=== PATIENT | male | born 1975 | race Caucasian/White ===

== ENCOUNTER 2025-01-20 11:18 | Emergency (ER) | payer MEDICAID ==
[~2025-01-20] VITALS: Ht 185.4 cm; Wt 81.8 kg
[2025-01-20 11:28] VITALS: BP 159/81; PULSE 57; O2SAT 99
[2025-01-20] MEDS ORDERED: CYCL-394 PO (13:21)
--- NOTE | 2025-01-20 13:21 | Physician Documentation ---
History of Present Illness ~ Chief Complaint: Back Pain Stated Complaint: BACK PAIN Time Seen by MD: 13:02 [facility] This patient was seen two weeks ago for lower back pain and recently injured his back again by picking up and heavy object. Denies any red flag symptoms including incontinence, saddle anesthesia or fevers or nausea vomiting Medication Reconciliation Allergies: Coded Allergies: No Known Allergies (Unverified , 01/20/25) Review of Systems All Other Systems at this time: Reviewed and Negative ROS As stated above in the HPI, otherwise all systems are reviewed and negative. Physical Exam Physical Exam Vital Signs: Temperature: 98.0, Source: Temporal, Heart Rate: 57, Respiratory Rate: 20, BP: 159/81, Pulse Oximetry: 99, Weight: 81.820 Oxygen Flow Rate: 0 Physical Exam General: Alert, no apparent distress. Neck: Full range of motion. Respiratory: Lungs clear, no respiratory distress. back: Lumbar tenderness to palpation Neurologic: Oriented x4. Psychiatric: Normal mood and affect. Skin: Normal color, warm and dry. No edema, no ecchymosis. Progress Results/Orders Results/Orders Completed Orders - SCAR ERICKSON NP Hydrocodone/Apap 10/325 (Cameron 10/325mg (01/20/25 13:00) Vital Signs 01/20/25 11:28 Temp 98.0 Pulse 57 Resp 20 B/P (MAP) 159/81 Pulse Ox 99 O2 Flow Rate 0 Medical Decision Making Findings Does not present with any concerning symptoms that would require further imaging or evaluation.. Going to treat him as a lumbar strain, I discussed with him the necessity of participating in physical therapy for correction symptomatic relief. Meantime I am going to send him home with a muscle relaxers and anti- inflammatory Departure Disposition: 01 HOME / SELF CARE / HOMELESS Impression: Primary Impression: Lumbosacral strain Condition: Stable Discharge Instructions: Lumbosacral Strain Referrals: NO PRIMARY CARE PROVIDER (PCP) Prescriptions Naproxen (Naproxen) 500 Mg Tablet 1 TAB PO Q12H for pain for 30 Days, #60 TAB 0 Refills Prov: SCAR ERICKSON NP 01/20/25 Cyclobenzaprine HCl (Cyclobenzaprine HCl) 10 Mg Tablet 1 TAB PO Q8H for muscle spasms for 10 Days, #30 TAB Prov: SCAR ERICKSON NP 01/20/25 Education Educated: Patient Educated regarding: diagnosis Signature Scribe Signature: t Attestation: Scribed for Scar Erickson Program Evaluation Consultant by Scar Alvarez NP . 01/20/25 13:22 SCAR ERICKSON NP Jan 20, 2025 13:21
[2025-01-20] MEDS ORDERED: NAPR-1168 PO (13:22)
[2025-01-20 13:24] VITALS: RESP 16
[2025-01-20] MEDS: HYDROcodone/acetaminophen 10/325mg tab PO ONE (13:24)
[2025-01-20 13:32] VITALS: TEMP 98
== END 2025-01-20 13:34 | disposition home or self-care (01) ==
LOC: ER 11:18
DX: S39.012A Strain of muscle, fascia and tendon of lower back, initial encounter (principal); W22.8XXA Striking against or struck by other objects, initial encounter; Y93.89 Activity, other specified; Y92.89 Other specified places as the place of occurrence of the external cause; Y99.8 Other external cause status
CPT/HCPCS: 99283